=== PATIENT | female | born 1975 | race Caucasian/White ===

== ENCOUNTER 2017-01-07 20:12 | Emergency (ER) | payer OTHER | END 2017-01-07 22:10 | disposition home or self-care (01) | LOC: ER 20:12 | DX: S20.312A Abrasion of left front wall of thorax, initial encounter (principal); M54.5 Low back pain; G40.909 Epilepsy, unspecified, not intractable, without status epilepticus; F17.210 Nicotine dependence, cigarettes, uncomplicated; W19.XXXA Unspecified fall, initial encounter ==

== ENCOUNTER 2017-01-18 18:43 | Emergency (ER) | payer OTHER | END 2017-01-18 20:57 | disposition home or self-care (01) | LOC: ER 18:43 | DX: G40.409 Other generalized epilepsy and epileptic syndromes, not intractable, without status epilepticus (principal); F17.210 Nicotine dependence, cigarettes, uncomplicated; Z79.899 Other long term (current) drug therapy | CPT/HCPCS: 36415; 80307; G0480 ==